=== PATIENT | male | born 2000 | race Caucasian/White ===

== ENCOUNTER 2022-05-28 19:50 | Emergency (ER) | payer BC, SELFPAY ==
--- NOTE | ~2022-05-28 | CT_ITS ---
EXAMINATION: CT orbit BI wo con DATE: 05/28/2022 20:31 INDICATION: Right eye pain and periorbital swelling. TECHNIQUE: Computed tomography (CT) of the orbits was performed without intravenous contrast. Automat ed exposure control and iterative reconstruction technique were employed. The dose-length product was 246.23 mGy-cm. COMPARISON: None. FINDINGS: There is leftward deviation the nasal septum. No fracture. There is mild mucosal thickening in the paranasal sinuses. The orbits are normal. IMPRESSION: 1. No fracture. Reviewed, dictated and finalized at location A. IMPRESSION: 1. No fracture.
[2022-05-28 20:04] VITALS: BP 148/92; PULSE 89; RESP 18; TEMP 36.6; O2SAT 97
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
[2022-05-28] MEDS: TETRACAINE HCL 0.5% OPHTH SOLN 4 ML BTL 1 DROP RIGHT EYE (20:52)
[2022-05-28] MEDS: FLUORESCEIN SOD 1 MG/STRIP RIGHT EYE (20:52)
[2022-05-28] MEDS: CIPROFLOXACIN HCL 0.3% OP SOLN 2.5 ML BTL 1 DROP RIGHT EYE (21:22)
== END 2022-05-28 21:34 | disposition home or self-care (01) ==
PROVIDERS: Emergency Provider Family Medicine; PCP Internal Medicine
DX: S05.01XA Injury of conjunctiva and corneal abrasion without foreign body, right eye, initial encounter (principal)
CPT/HCPCS: 70480; 99284

== ENCOUNTER 2023-08-17 13:52 | Emergency (ER) | payer BC, SELFPAY ==
--- NOTE | ~2023-08-17 | XR_ITS ---
EXAMINATION: XR chest 1V portable INDICATION: Shortness of breath TECHNIQUE: Portable AP chest at 1436 hours COMPARISON: None available FINDINGS: The lungs are free of acute opacities. No pleural effusion or pneumothorax. The cardiomedia stinal silhouette is normal. IMPRESSION: 1. No acute cardiopulmonary abnormality. Reviewed, dictated and finalized at location B. ASSISTANT MANAGER
[2023-08-17 13:52] VITALS: PULSE 80
[2023-08-17 14:01] VITALS: BP 147/92; PULSE 85; RESP 14; TEMP 37.1; O2SAT 98
--- NOTE | 2023-08-17 14:03 | ED.CHESTPAIN ---
HPI - Chest Pain General Chief Complaint: Chest Pain Stated Complaint: chest pain Time Seen by Provider: 08/17/23 14:02 Source: patient Mode of arrival: ambulatory Limitations: no limitations History of Present Illness HPI narrative: 23-year-old male who recently quit smoking, works in [employer] and presents to the ER with a 1 year history of -- left chest pain off and on without any relation to exercise and lasts a few minutes with spontaneous resolution. The patient is able to run 2 miles without any chest pain. Currently the patient does not have any chest pain. -- Chronic shortness of breath. No cough or sputum production. The patient feels shortness of breath at this time. -- patient has tearing anterior chest pain when he stretches his chest. MD complaint: chest pain Onset (ago): year(s) ( Off and on for 1 year) Timing of current episode: episodic Prior episodes: Yes Onset: during rest Pain location: left chest Pain radiation: none Severity: mild Quality: aching Relieving factors: nothing Exacerbating factors: nothing Risk Factors Coronary artery disease risk factors: smoking history Thoracic aortic dissection risk factors: none Related Data Home Medications Medication Instructions Recorded Confirmed No Home Medications 08/17/23 08/17/23 Allergies Allergy/AdvReac Type Severity Reaction Status Date / Time No Known Allergies Allergy Verified 08/17/23 14:03 Review of Systems Review of Systems: All systems reviewed & are unremarkable except as noted in HPI and below Constitutional: Constitutional: Reports as per HPI and Reports no additional constitutional complaints Eyes: Eyes: Reports as per HPI and Reports no additional eye complaints ENT: Reports system reviewed and no additional complaints, except as documented Cardiovascular: Cardiovascular: Reports as per HPI and Reports no additional cardiovascular complaints Respiratory: Respiratory: Reports as per HPI and Reports no additional respiratory complaints Gastrointestinal: Gastrointestinal: Reports as per HPI and Reports no additional gastrointestinal complaints Genitourinary: Genitourinary: Reports no additional male genitourinary complaints and Reports as per HPI Musculoskeletal: Musculoskeletal: Reports no additional musculoskeletal complaints and Reports as per HPI Integumentary/Breasts: Skin/Breast: Reports system reviewed and no additional complaints, except as docu and Reports as per HPI Neurologic: Reports system reviewed and no additional complaints, except as documented and Reports as per HPI Psychiatric: Psychiatric: Reports no additional psychiatric complaints and Reports as per HPI Endocrine: Endocrine: Reports no additional endocrine complaints and Reports as per HPI Hematologic/Lymphatic: Hematologic/Lymphatic: Reports no additional hematologic/lymphatic complaints and Reports as per HPI Allergic/Immunologic: Allergic/Immunologic: Reports no additional allergic/immunologic complaints and Reports as per HPI Exam Const: General: healthy appearing and no acute distress Nutritional Appearance: well nourished Orientation/consciousness: patient oriented x3 Limitations: no limitations HENMT: Head: normal to inspection Ears: external ears normal Face/Nose/Sinus: Normal external nose present Face and sinus: normal facial exam Mouth: Yes Normal oral and palatal mucosa present Teeth and gingiva: dentition normal Throat: posterior oropharynx normal Eyes: Conjunctivae: conjunctivae normal Pupils: Equal, round and reactive pupils present EOM: EOMs intact bilaterally Direct Ophthalmoscopy: no photophobia Neck: Neck: normal visual inspection, no lymphadenopathy and no meningeal signs Chest: Chest palpation & inspection: normal inspection of the chest Resp: Effort & Inspection: normal respiratory effort Auscultation: clear to auscultation bilaterally Cardio: Rate: regular rate Rhythm: regular rhythm Heart sounds: Murmur hear
--- NOTE | 2023-08-17 14:08 | ECG_ITS ---
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
[2023-08-17 14:31] LABS: Basophils Absolute Auto 0.03 K/mm3 (0.00-0.10); Basophils Percent Auto 0.4 % (0.0-1.0); Eosinophils Absolute Auto 0.22 K/mm3 (0.02-0.50); Eosinophils Percent Auto 3.1 % (1.0-6.0); Hematocrit 39.8 % (40.0-54.0); Hemoglobin 13.9 g/dL (14.0-18.0); Immature Granulocyte Absolute 0.02 K/mm3 (0.00-0.00); Immature Granulocyte Percent A 0.3 % (0.0-0.0); Lymphocytes Percent Auto 19.7 % (18.0-42.0); Mean Corpuscular HGB Conc 34.9 g/dL (32.0-36.0); Mean Corpuscular Hemoglobin 30.9 pg (27.0-31.0); Mean Corpuscular Volume 88.4 fL (78.0-102.0); Mean Platelet Volume 11.2 fl (8.7-11.0); Monocytes Absolute Auto 0.93 K/mm3 (0.10-0.90); Monocytes Percent Auto 13.1 % (2.0-11.0); Neutrophils Absolute Auto 4.5 K/mm3 (1.7-7.2); Neutrophils Percent Auto 63.4 % (50.0-70.0); Platelet Count Result 212 K/mm3 (150-420); Red Cell Distribution Width 11.4 % (11.6-14.4); White Blood Count 7.1 K/mm3 (4.8-10.8)
[2023-08-17 14:44] LABS: D Dimer 0.19 mg/L (0.19-0.50)
[2023-08-17 14:46] VITALS: BP 127/72; PULSE 79; PULSE 80; RESP 17; RESP 18; O2SAT 97; O2SAT 99
[2023-08-17 14:47] VITALS: PULSE 80; RESP 17; O2SAT 97
[2023-08-17 14:53] LABS: Alanine Aminotransferase 25 U/L (16-63); Albumin Level 3.8 g/dL (3.4-5.0); Alkaline Phosphatase 79 U/L (46-116); Anion Gap 4 mmol/L (8-16); Aspartate Amino Transferase 20 U/L (15-37); Bilirubin,Total 0.5 mg/dL (0.00-1.00); Blood Urea Nitrogen 13 mg/dL (7-18); Calcium 8.2 mg/dL (8.5-10.1); Carbon Dioxide 34 mmol/L (21-32); Chloride 100 mmol/L (98-108); Estimated CRCL calculation 86 ml/min; Estimated Glomerular Filt Rate > 60; Glucose 102 mg/dL (70-99); Osmolality Calculated 286 mOsm/kg (285-295); Potassium 3.4 mmol/L (3.5-5.1); Sodium 138 mmol/L (136-145); Total Protein 7.3 g/dL (6.4-8.2)
[2023-08-17 15:00] VITALS: PULSE 81; RESP 11; O2SAT 98
[2023-08-17 15:01] VITALS: BP 122/76; PULSE 80; RESP 15; O2SAT 97
== END 2023-08-17 15:10 | disposition home or self-care (01) ==
PROVIDERS: Emergency Provider Internal Medicine Critical Care Medicine; PCP Internal Medicine
DX: R07.9 Chest pain, unspecified (principal); Z87.891 Personal history of nicotine dependence
CPT/HCPCS: 36415; 71045; 80053; 84484; 85025; 85380; 93005; 99285

== ENCOUNTER 2023-12-03 16:04 | Observation (INO) | payer BC, SELFPAY ==
[2023-12-03] VITALS (28 sets, daily range): BP systolic 91–129; BP diastolic 60–86; PULSE 61–82; RESP 12–18; TEMP 35.5–37; O2SAT 96–100; BMI 27.8
--- NOTE | ~2023-12-03 | XR_ITS ---
EXAMINATION: XR chest 1V portable Exam Date/Time: 12/03/2023 18:30 CDT HISTORY: hypotension, SYNCOPE Comparison: 08/17/2023. RESULT: Lines, tubes, and devices: None. Lungs and pleura: Clear. Cardiomediastinal silhouette: Stable. Other: No acute osseous or upper abdominal finding. IMPRESSION: No acute cardiopulmonary process. Reviewed, dictated and finalized at location K.
--- NOTE | 2023-12-03 16:09 | ECG_ITS ---
Measurements Intervals [place] Rate: 66 P: 66 AR: 184 QRS: 71 QRSD: 108 T: 34 QT: 425 Avg RR: 900 QTc: 439 QTcB: 447 QTcF: 440 Interpretive Statements SINUS RHYTHM NORMAL ECG SEE SCANNED COPY FOR SIGNATURE MTDD
[2023-12-03] MEDS: SODIUM CHLORIDE 0.9% IV 1,000 ML 999 ML IV CONT ×2 (16:25→17:23)
[2023-12-03 16:26] LABS: Basophils Absolute Auto 0.1 K/mm3 (0.0-0.1); Basophils Percent Auto 0.4 % (0.2-1.2); Eosinophils Absolute Auto 0.3 K/mm3 (0-0.3); Eosinophils Percent Auto 1.5 % (0-4.4); Hematocrit 52.3 % (42.0-52.0); Hemoglobin 18.6 g/dL (14.0-18.0); Immature Granulocyte Absolute 0.07 K/mm3 (0.00-0.031); Immature Granulocyte Percent A 0.4 % (0-0.5); Lymphocytes Absolute Auto 1.94 K/mm3 (0.9-3.2); Lymphocytes Percent Auto 11.6 % (18.3-44.2); Mean Corpuscular HGB Conc 35.6 g/dl (32-36); Mean Corpuscular Hemoglobin 30.5 pg (26-34); Mean Corpuscular Volume 85.9 fl (80-100); Mean Platelet Volume 11.9 fl (7.4-10.4); Monocytes Absolute Auto 0.8 K/mm3 (0.1-0.6); Neutrophils Absolute Auto 13.6 K/mm3 (1.3-6.7); Neutrophils Percent Auto 81.1 % (45.5-73.1); Platelet Count Result 202 k/mm3 (150-375); Red Blood Count 6.09 M/mm3 (4.6-6.20); Red Cell Distribution Width 12.1 % (11.5-14.5); White Blood Count 16.8 K/mm3 (4.5-10.0)
[2023-12-03 16:37] LABS: Alanine Aminotransferase 26 U/L (6-50); Albumin Level 4.3 g/dL (3.5-5.1); Alkaline Phosphatase 71 U/L (38-126); Anion Gap 11 mmol/L (4-12); Aspartate Amino Transferase 28 U/L (17-59); Bilirubin,Total 0.8 mg/dL (0.2-1.3); Blood Urea Nitrogen 18 mg/dL (9-20); Calcium 8.9 mg/dL (8.4-10.2); Carbon Dioxide 24 mmol/L (22-30); Chloride 103 mmol/L (98-107); Estimated CRCL calculation 79 ml/min; Estimated Glomerular Filt Rate > 60; Glucose 228 mg/dL (65-110); INR 1.2; Potassium 3.6 mmol/L (3.4-5.0); Prothrombin Time 15.3 Seconds (11.1-14.7); Sodium 138 mmol/L (137-145)
[2023-12-03 16:37] LABS: Lactic Acid Reflex 3.1 mmol/L (0.7-2.0)
[2023-12-03 16:38] LABS: Partial Thromboplastin Time 26.6 Seconds (22.3-36.8)
--- NOTE | 2023-12-03 16:57 | PC.NURSE ---
Pt temperature 97.6. Pt no longer shivering and c/o being warm. Neftaly zaidi removed. made aware.
[2023-12-03 17:02] LABS: Influenza A QL RT-PCR Negative (Negative); Influenza B QL RT-PCR Negative (Negative); RSV RNA, RT-PCR Negative (Negative); SARS-CoV-2 RNA PCR Negative (Negative)
--- NOTE | 2023-12-03 17:11 | ED.GENADULT ---
HPI - General Adult General Chief complaint: Recheck/Abnormal Lab/Rx Stated complaint: low blood pressure History of Present Illness HPI narrative: 23-year-old male presents to the emergency department for evaluation for an episode of feeling flushed dizzy lightheaded and being hypotensive. Patient states this has happened multiple times when he goes to play hockey. Patient states he has never had any episodes that are not associated with hockey. Patient states symptoms typically last about 15-20 minutes in the resolved. He states usually he feels overheated does break out in hives and when he rests in the locker room he tends to feel improved. Today patient played hockey about 15 minutes felt overheated and went to lay down. Patient states he was severely flushed and did leg and call locker room dosing himself with cold water or cool off. Patient continues to feel weak. EMS was called because bystanders felt the patient was not responsive. Patient states he felt he was responsive the entire time. When EMS arrived they found the patient being alert oriented but to be hypotensive. IV fluids were started patient was transferred to the emergency department. Upon arrival to the ED patient was more alert appropriate but was found to be hypotensive and hypothermic. Patient denies taking medications. Patient denies any alcohol today. Patient states he did not take any vitamins supplements or pre workout today. Patient does use a drink energy drinks but did not drink any today. Patient denies any history of sudden cardiac in the family. Related Data Home Medications Medication Instructions Recorded Confirmed No Home Medications 08/17/23 12/03/23 Allergies Allergy/AdvReac Type Severity Reaction Status Date / Time No Known Allergies Allergy Verified 08/17/23 14:03 Review of Systems Review of Systems: All systems reviewed & are unremarkable except as noted in HPI and below PMFSH Past Medical History Medical History (Updated 12/04/23 @ 19:18 by Troy Rogel MD) No pertinent past medical history Surgical History Surgical History (Updated 12/03/23 @ 23:49 by Dorys Espino PA-C) No history of previous surgery Social History Social History (Updated 12/03/23 @ 23:50 by Dorys Espino PA-C) Social History: Surrogate medical decision maker: Emma Posey, [id number]. Code status: Full code. Years smoked: 3 Smoking status: Former smoker Tobacco type: cigarettes and e-cigarettes/vaping Smoking end date: 07/29/23 Alcohol intake: never Drinks per week: 14 Do You Feel Safe in your Home?: Yes Lack of Transportation: No Lack of Food: Never True Current Housing: I Have Housing Concerned About Future Housing: No Difficulty Paying Gas/Electric Bills: No Difficulty Paying for Meds: No Currently Unemployed: No Education: High School Diploma/GED Difficulty w/ Childcare or Family Care: No Additional living arrangements comments: Lives with in [place]. They are expecting their 1st child next week. 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 EYES: PERRLA/EOMI, conjunctivae clear. NOSE: Normal no drainage EARS:TMS clear with good light reflex. THROAT: Pharynx clear, no exudate. NECK: Supple. No adenopathy, no masses. RESPIRATORY: Airway patent, respirations nonlabored. Clear to auscultation bilaterally, no rales, rhonchi, wheezing. CARDIOVASCULAR: Regular rate and rhythm without murmurs rubs or gallops. ABDOMINAL: Soft, nontender, nondistended, normal bowel sounds MUSCULOSKELETAL: Moves all extremities. Strength/ROM intact, No edema, No calf tenderness. NEURO: Alert. Cranial nerves II through XII intact. Grossly SKIN: Flushed skin arms and legs Course Course Emergency Course: Case was discussed with hospitalist and philipp
[2023-12-03 17:12] LABS: Magnesium 1.9 mg/dL (1.6-2.3)
[2023-12-03 17:24] LABS: NT Pro B Type Natriuretic Pept < 20 pg/mL (19.9-100); Troponin I 0.017 ng/mL (0.000-0.034)
[2023-12-03 17:27] LABS: Ethanol < 10 mg/dL (<10)
[2023-12-03 18:43] LABS: Lactic Acid Reflex 1.1 mmol/L (0.7-2.0)
[2023-12-03 19:24] LABS: Reflex Lactic Acid Yes or No Add Lactic
[2023-12-03 19:55] LABS: Amphetamine Screen Urine Negative (Negative); Barbiturate Screen Urine Negative (Negative); Benzodiazepines Screen Urine Negative (Negative); Cannabinoid Screen Urine Negative (Negative); Cocaine Screen Urine Negative (Negative); Methadone Screen Urine Negative (Negative); Opiate Screen Urine Negative (Negative); Phencyclidine Screen Urine Negative (Negative)
[2023-12-03 20:00] LABS: Appearance Urine Clear (Clear); Bacteria Urine None Seen /hpf; Bilirubin Urine Negative (Negative); Blood Urine Negative (Negative); Color Urine Yellow (Yellow); Glucose Urine UA Negative (Negative); Ketones Urine Negative (Negative); Leukocyte Esterase Ur Negative LEU/UL (Negative); Need Manual Microscopic Reviewed; Nitrate Urine Negative (Negative); Protein Urine 1+ mg/dL (Negative); RBC Urine 0-2 /hpf (0-2); Specific Grav Ur 1.023 (1.001-1.035); Squamous Epithelial Cell Urine None Seen /hpf (Few); Urobilinogen Urine 0.2 mg/dL (<2.0); WBC Urine 0-5 /hpf (0-3)
[2023-12-03 20:01] LABS: Add Urine Microscopic? YES
--- NOTE | 2023-12-03 20:41 | ADMGEN ---
This patient, Latrell Cronin, was admitted to Medical Room 340-01. Patient/family oriented to hospital policies and general routines including ID bracelet, bed and alarms, visiting hours, pain management, procedures, bathroom and other care routines, personal items, smoking policy, room service/diet, and visiting hours. Information on how to activate the Rapid Response Team has been discussed. Patient/Family are encouraged to report perceived risks to care and to ask questions if they do not understand what they are told or what they should do.
--- NOTE | 2023-12-03 22:07 | PM.IMHP ---
H&P: HPI History of Present Illness Date/Time: 12/03/23 22:00 Chief Complaint: Syncope. Narrative: This is a previously healthy 23-year-old male presented to the emergency department via EMS for evaluation after syncopal episode at the ice rink. The patient provides the following history. She felt fine when he got up this morning, had lunch, and went to the [facility] to place some hockey. Approximately 15 minutes into and easy-going scrimmage he started to feel warm, flushed, lightheaded, and weak. He left the ice and went to lie down in the locker room where he splashed cold water on himself to cool down. After about 10 to 15 minutes he was still not feeling better and when someone came in to check on him ?I can hear with they were saying but I did not respond? and was called. He admits to having multiple, similar episodes in the past, each occurring during hockey though it does not happen every time. His symptoms typically start with pruritus and he then develops ?head to toe? hives and flushing. He has never had chest pain palpitations or shortness of breath with these episodes. He denies asthma, allergies, and atopy. In the ED: Blood pressure was 91/73 on arrival and he his temperature was just under 96? F. he was placed under a Chelle Hugger and given 2 L normal saline with improvement his blood pressures. Labs were significant for WBC count of 16.8, hemoglobin 18.6, hematocrit 52.3%, lactic acid 3.1, glucose 228. Urine drug screen was negative. He was also negative for influenza, RSV, and COVID. Chest x-ray showed no acute cardiopulmonary process. EKG showed a sinus rhythm with normal axis and intervals. He is being admitted in this setting for further workup in closer monitoring. Review of Systems Review of Systems: Twelve systems were reviewed and are negative except for as per HPI. [facility] Past Medical History Medical History (Updated 12/03/23 @ 23:49 by Dorys Espino PA-C) No pertinent past medical history Surgical History Surgical History (Updated 12/03/23 @ 23:49 by Dorys Espino PA-C) No history of previous surgery Social History Social History (Updated 12/03/23 @ 23:50 by Dorys Espino PA-C) Social History: Surrogate medical decision maker: Emma Posey, [id number]. Code status: Full code. Years smoked: 3 Smoking status: Former smoker Tobacco type: cigarettes and e-cigarettes/vaping Smoking end date: 07/29/23 Alcohol intake: never Drinks per week: 14 Do You Feel Safe in your Home?: Yes Lack of Transportation: No Lack of Food: Never True Current Housing: I Have Housing Concerned About Future Housing: No Difficulty Paying Gas/Electric Bills: No Difficulty Paying for Meds: No Currently Unemployed: No Education: High School Diploma/GED Difficulty w/ Childcare or Family Care: No Additional living arrangements comments: Lives with in [place]. They are expecting their 1st child next week. 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-[employer] Spiritual care concerns: No Meds Home Medications and Allergies Home Medications Medication Instructions Recorded Confirmed Type No Home Medications 08/17/23 12/03/23 History Allergies Allergy/AdvReac Type Severity Reaction Status Date / Time No Known Allergies Allergy Verified 08/17/23 14:03 Vital Signs Vital Signs - 24 hr 12/03/23 16:05 12/03/23 16:19 12/03/23 16:22 Temperature 96 F L Pulse Rate 67 62 Respiratory Rate 16 15 Blood Pressure 105/66 91/73 L Pulse Oximetry 99 100 Oxygen Delivery Room Air 12/03/23 16:26 12/03/23 16:41 12/03/23 16:11 Temperature 96 F L 96.7 F L Pulse Rate 71 Respiratory Rate 14 Blood Pressure Pulse Oximetry 98 Oxygen Delivery 12/03/23 16:16 12/03/23 16:30 12/03/23 16:31 Temperature Pulse Rate 67 66 75 Respiratory Rate 14 16 18 Blood Pressure 91/73 L 109/62 Pulse Oximetry 100 98 99 Oxygen Delivery
[2023-12-03] MEDS: LACTATED RINGERS 1,000 ML 100 ML IV CONT (23:26)
[2023-12-03 23:38] LABS: Hemoglobin A1C 5.4 % (<5.7)
[2023-12-04] VITALS (10 sets, daily range): BP systolic 123–154; BP diastolic 65–72; PULSE 58–92; RESP 14–18; TEMP 36.4–36.6; O2SAT 96–99
[2023-12-04 05:28] LABS: Hematocrit 44.5 % (42.0-52.0); Hemoglobin 15.2 g/dL (14.0-18.0); Mean Corpuscular HGB Conc 34.2 g/dl (32-36); Mean Corpuscular Hemoglobin 30.3 pg (26-34); Mean Corpuscular Volume 88.8 fl (80-100); Mean Platelet Volume 11.9 fl (7.4-10.4); Platelet Count Result 176 k/mm3 (150-375); Red Blood Count 5.01 M/mm3 (4.6-6.20); Red Cell Distribution Width 12.1 % (11.5-14.5); White Blood Count 6.7 K/mm3 (4.5-10.0)
[2023-12-04 05:34] LABS: Anion Gap 3 mmol/L (4-12); Blood Urea Nitrogen 18 mg/dL (9-20); Calcium 8.4 mg/dL (8.4-10.2); Carbon Dioxide 27 mmol/L (22-30); Chloride 107 mmol/L (98-107); Estimated CRCL calculation 101 ml/min; Estimated Glomerular Filt Rate > 60; Glucose 100 mg/dL (65-110); Sodium 137 mmol/L (137-145)
--- NOTE | 2023-12-04 12:10 | PCCCNOTE ---
On 12/04/23, the student, [Abi Crespo ], provided care and completed [employer] documentation on this patient. I have reviewed the student's documentation and agree with the findings.
--- NOTE | 2023-12-04 14:54 | PM.IMPN ---
Progress Note: A&P Assessment and Plan (1) Syncope: Code(s): R55 - Syncope and collapse Status: Acute Assessment and Plan: 12/04/23: Patient reporting feeling flushed, lightheaded, and warm when playing hockey yesterday causing him to exit the ice and go to the locker room where he laid down. He was noted to have hives all over his body. No trouble with breathing but was noted to have low blood pressure and was hypothermic on arrival to the ER. Patient has had similar episodes of all over his body which occurred during hockey at the same arena. Not sure this allergic reaction to something in his environment. He was given 2 L NS in the ER and started on maintenance fluids. There was improvement in his blood pressure after receiving the fluid. 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 Patient states that he was at a hockey rink last night playing hockey and approximately 15 minutes into easy-going screw mid she started to feel warm, flushed, lightheaded, and weak. He left the ice and went to lie down in the locker room and/cold water on his face. A friend came to check on him in the locker room any can hear what he was saying but he felt like he could not respond. He has had similar episodes in the past each during hockey where he broke out in to hives from head to toe and had some flushing. Workup in the hospital included a chest x-ray which was negative. Initial labs showed a white blood cell count of 16.8, otherwise essentially normal troponin was 0.017, TSH 3.610. I urine was obtained showing 1+ protein otherwise negative. Urine drug screen was also negative. Respiratory panel was negative for influenza A/B, RSV, COVID. In the ED he was hypotensive and hypothermic was placed on a Chelle Hugger. He was given 2 L normal saline with improvement in his blood pressure. Examination today patient denies any fever, chills, nausea, vomiting, diarrhea, abdominal pain, chest pain, shortness a breath. He denies any seasonal allergies, denies elicit drug use, has not taken any new supplements, he has not switched any detergents. Patient denies any medical history and does not take anything routinely. He has not changed anything in his diet. Plan for orthostatic blood pressures and an Echo today to rule out etiology. Review of Systems Review of Systems: All systems reviewed & are unremarkable except as noted in HPI and below Constitutional: Constitutional: Reports as per HPI and Reports no additional constitutional complaints Eyes: Eyes: Reports as per HPI and Reports no additional eye complaints ENT: Reports system reviewed and no additional complaints, except as documented and Reports as per HPI Cardiovascular: Cardiovascular: Reports as per HPI and Reports no additional cardiovascular complaints Respiratory: Respiratory: Reports as per HPI and Reports no additional respiratory complaints Gastrointestinal: Gastrointestinal: Reports as per HPI and Reports no additional gastrointestinal complaints Genitourinary: Genitourinary: Reports no addition
[2023-12-05] VITALS: PULSE 54
--- NOTE | 2023-12-05 | ECHO_ITS ---
Patient Info Name: Latrell Cronin Age: 23 years : 2000 Gender: Male Ht: 59 in Wt: 188 lbs BSA: 1.93 m2 HR: 74 bpm BP: 130 / 62 mmHg Technical Quality: Good Exam Date: 12/05/2023 7:38 AM Exam Location: Echo Lab Patient Status: Inpatient Admit Date: 12/03/2023 Staff Ordering Physician: Dorys Espino PA-C [employer] Report Developer: Leonardo Gaspar RDCS Attending Provider: Josue Alvarado MD Referring Physician: Srinivas TIERNEY; Exam Type: CA echo doppler color flow Study Info Indications R55 - Syncope and collapse Complete two-dimensional, color flow and Doppler transthoracic echocardiogram is performed. Summary 1. Complete two-dimensional, color flow and Doppler transthoracic echocardiogram is performed. 2. Left ventricular chamber dimension is normal. 3. Left ventricular systolic function is normal, estimated at 65-70%. 4. The left ventricular diastolic function is normal. 5. E/e' 6 is not elevated. 6. There is mild mitral valve regurgitation. 7. There is trace tricuspid valve regurgitation. 8. No pulmonary hypertension, estimated pulmonary arterial systolic pressure is 20 mmHg. 9. There is trace pulmonic regurgitation. Left Ventricle E/e' 6 is not elevated. Left ventricular chamber dimension is normal. Left ventricular systolic function is normal, estimated at 65-70%. The left ventricular diastolic function is normal. Right Ventricle Right ventricular systolic function is normal and with normal TAPSE 2.6 cm. Right ventricular chamber dimension is normal. Left Atria Left atrial chamber dimension is normal. Right Atria Right atrial chamber dimension is normal. Aortic Valve The aortic valve is trileaflet. There is no aortic valve stenosis. There is no aortic valve regurgitation. Pulmonic Valve There is trace pulmonic regurgitation. Mitral Valve There is no mitral valve stenosis. There is mild mitral valve regurgitation. Tricuspid Valve There is trace tricuspid valve regurgitation. No pulmonary hypertension, estimated pulmonary arterial systolic pressure is 20 mmHg. Pericardium/Pleural There is no pericardial effusion. Inferior Vena Cava Normal inferior vena cava with >50% collapse upon inspiration consistent with normal right atrial pressure, 5 mmHg. Aorta The aortic root size at the sinus of Valsalva is normal. Left Ventricular Outflow Tract Name Value Normal LVOT 2D LVOT Diameter 2.2 cm LVOT Doppler LVOT Peak Gradient 4 mmHg LVOT Mean Gradient 2 mmHg LVOT VTI 20 cm LVOT VTI/AV VTI Ratio 0.8 LVOT Stroke Volume 73 ml LVOT CO 5.0 l/min LVOT CI 2.6 l/min/m2 Pulmonic Valve Name Value Normal RVOT Doppler RVOT Peak Gradient 2 mmHg PV Doppler
[2023-12-05 04:00] VITALS: PULSE 49
[2023-12-05 04:21] VITALS: BP 130/62; PULSE 74; RESP 16; TEMP 36.6; O2SAT 98
[2023-12-05 08:00] VITALS: PULSE 60
[2023-12-05 08:38] LABS: Basophils Percent Auto 0.7 % (0.2-1.2); Eosinophils Absolute Auto 0.3 K/mm3 (0-0.3); Eosinophils Percent Auto 6.1 % (0-4.4); Hematocrit 44.5 % (42.0-52.0); Hemoglobin 15.2 g/dL (14.0-18.0); Lymphocytes Absolute Auto 1.39 K/mm3 (0.9-3.2); Lymphocytes Percent Auto 31.2 % (18.3-44.2); Mean Corpuscular HGB Conc 34.2 g/dl (32-36); Mean Corpuscular Hemoglobin 30.5 pg (26-34); Mean Corpuscular Volume 89.2 fl (80-100); Monocytes Absolute Auto 0.4 K/mm3 (0.1-0.6); Monocytes Percent Auto 8.7 % (2.6-8.5); Neutrophils Absolute Auto 2.4 K/mm3 (1.3-6.7); Neutrophils Percent Auto 53.3 % (45.5-73.1); Platelet Count Result 156 k/mm3 (150-375); Red Blood Count 4.99 M/mm3 (4.6-6.20); Red Cell Distribution Width 12.3 % (11.5-14.5); White Blood Count 4.5 K/mm3 (4.5-10.0)
[2023-12-05 08:50] LABS: Alanine Aminotransferase 25 U/L (6-50); Albumin Level 4.4 g/dL (3.5-5.1); Alkaline Phosphatase 66 U/L (38-126); Anion Gap 4 mmol/L (4-12); Aspartate Amino Transferase 27 U/L (17-59); Bilirubin,Total 0.7 mg/dL (0.2-1.3); Blood Urea Nitrogen 16 mg/dL (9-20); Calcium 9.5 mg/dL (8.4-10.2); Carbon Dioxide 32 mmol/L (22-30); Chloride 103 mmol/L (98-107); Estimated CRCL calculation 101 ml/min; Estimated Glomerular Filt Rate > 60; Glucose 112 mg/dL (65-110); Potassium 4.1 mmol/L (3.4-5.0); Sodium 139 mmol/L (137-145)
[2023-12-05 12:00] VITALS: PULSE 61
--- NOTE | 2023-12-05 12:31 | PM.DS ---
DS: Admitting Diagnosis Discharge Date 12/05/23 Admitting Diagnosis Syncope Elevated lactic acid level Polycythemia Hyperglycemia DS: Discharge Diagnosis Discharge Diagnosis (1) Syncope: Code(s): R55 - Syncope and collapse Status: Acute (2) Elevated lactic acid level: Code(s): R79.89 - Other specified abnormal findings of blood chemistry Status: Acute (3) Polycythemia: Code(s): D75.1 - Secondary polycythemia Status: Acute (4) Hyperglycemia: Code(s): R73.9 - Hyperglycemia, unspecified Status: Acute DS: Summary Hospital Course Reason for hospitalization: Syncope Elevated lactic acid level Polycythemia Hyperglycemia Hospital Course: 11/03/23: This is a 23-year-old male who presents hospice complaints syncope.? Patient states that he was at a hockey rink last night playing hockey and approximately 15 minutes into easy-going scrimmage he started to feel warm, flushed, lightheaded, and weak.? He left the ice and went to lie down in the locker room and/cold water on his face.? A friend came to check on him in the locker room any can hear what he was saying but he felt like he could not respond.? He has had similar episodes in the past each during hockey where he broke out in to hives from head to toe and had some flushing.? Workup in the hospital included a chest x-ray which was negative.? Initial labs showed a white blood cell count of 16.8, otherwise essentially normal troponin was 0.017, TSH 3.610.? I urine was obtained showing 1+ protein otherwise negative.? Urine drug screen was also negative.? Respiratory panel was negative for influenza A/B, RSV, COVID.? In the ED he was hypotensive and hypothermic was placed on a Chelle Hugger.? He was given 2 L normal saline with improvement in his blood pressure.? Examination today patient denies any fever, chills, nausea, vomiting, diarrhea, abdominal pain, chest pain, shortness a breath.? He denies any seasonal allergies, denies elicit drug use, has not taken any new supplements, he has not switched any detergents. Patient denies any medical history and does not take anything routinely. He has not changed anything in his diet. Plan for orthostatic blood pressures and an Echo today to rule out etiology. 11/04/23: Patient denies any new complaints today. He had an echo performed which showed normal LV systolic function with an estimated EF of 65-70%, normal diastolic function, no pulmonary hypertension, essentially normal. Labs today were essentially unremarkable. Patient is stable for discharge at this time. He will need to follow up with an nursing informatics analyst as soon as possible and 1 was provided on his discharge instructions today. We did also order her an EpiPen for him due to severe allergy in his environment that has not really been identified. He will also need to follow-up with a primary care physician within 1 week. Final diagnosis: Dehydration, syncope, allergic reaction unknown source Status at Discharge Cognitive/behavioral status at discharge: Alert oriented x4 Functional status at discharge: independent ambulation Overall status at discharge: patient is progressing back to baseline Time Spent with Patient Time attestation: Total time spent providing and/or coordinating discharge services: Time spent: Greater than 30 minutes Exam Narrative: General: In no acute distress, well nourished Head: atraumatic, no encephalopathy Eyes: EOMI, PERRLA, sclera clear ENT: moist mucous membranes, nasal passages clear Neck: supple, no JVD, no adenopathy, trachea midline Cardiac: Normal S1 and S2. RRR, No murmur, gallops or friction rubs, peripheral pulses intact. Respiratory: Lungs clear to auscultation, no adventitious lung sounds, currently on room air Gastrointestinal: soft, non-distended, non-tender, normoactive bowel sounds. : voiding without difficulty. Extremities: moves all extremities well, no edema, good ROM, strength 5/5 Skin: clean, dry, intac
== END 2023-12-05 13:45 | disposition home or self-care (01) ==
LOC: ANHED 16:40 → ANH3MED 20:16 → ANH3MEDSUR 12-06 08:48
PROVIDERS: Nurse Practitioner Acute Care; Physician Assistant; Admitting Provider Internal Medicine; Emergency Provider Emergency Medicine; PCP Internal Medicine; Visit Provider Internal Medicine
DX: R55 Syncope and collapse (principal); R74.02 Elevation of levels of lactic acid dehydrogenase [LDH]; D75.1 Secondary polycythemia; I95.9 Hypotension, unspecified; R73.9 Hyperglycemia, unspecified; I34.0 Nonrheumatic mitral (valve) insufficiency; Z20.822 Contact with and (suspected) exposure to COVID-19; Z87.891 Personal history of nicotine dependence
CPT/HCPCS: 36415; 71045; 80048; 80053; 80307; 81001; 83036; 83605; 83735; 83880; 84443; 84484; 85025; 85027; 85610; 85730; 87637; 93005; 93306; 96360; 96361; 99285; G0378; J7030; J7120